=== PATIENT | female | born 2000 | race Caucasian/White ===

== ENCOUNTER 2019-04-12 08:47 | Day surgery (SDC) | payer OTHER ==
[2019-04-09 10:39] LABS: APPEARANCE,URINE SLIGHTLY-CLOUDY; BILIRUBIN,URINE NEGATIVE (NEGATIVE); COLOR,URINE YELLOW; GLUCOSE, URINE NEGATIVE (NEGATIVE); KETONES,URINE NEGATIVE (NEGATIVE); LEUKOCYTE ESTERASE,URINE NEGATIVE (NEGATIVE); NITRITE,URINE NEGATIVE (NEGATIVE); PROTEIN,URINE 100 mg/dL (NEGATIVE); URINE SPECIFIC GRAVITY 1.024; UROBILINOGEN,URINE NEGATIVE mg/dL (<2.0)
[2019-04-09 10:58] LABS: ANION GAP 10 (5-19); BLOOD UREA NITROGEN 11 mg/dL (7-20); CALCIUM 9.5 mg/dL (8.4-10.2); CARBON DIOXIDE 28 mmol/L (22-30); CHLORIDE 102 mmol/L (98-107); GLUCOSE 66 mg/dL (75-110); POTASSIUM 3.8 mmol/L (3.6-5.0)
[2019-04-09 12:10] LABS: ABSOLUTE EOSINOPHILS # (AUTO) 0.2 10^3/uL (0.0-0.6); ABSOLUTE LYMPHOCYTES (AUTO) 2.6 10^3/uL (0.5-4.7); ABSOLUTE MONOCYTES (AUTO) 0.4 10^3/uL (0.1-1.4); ABSOLUTE NEUT (AUTO) 3.7 10^3/uL (1.7-8.2); BASOPHILS % (AUTO) 0.5 % (0-2); EOSINOPHILS % (AUTO) 3.1 % (0-6); HEMATOCRIT 41.8 % (36.0-47.0); LYMPHOCYTES % (AUTO) 37.1 % (13-45); MEAN CORPUSCULAR HEMOGLOBIN 29.2 pg (27.0-33.4); MEAN CORPUSCULAR HGB CONC 33.5 g/dL (32.0-36.0); MEAN CORPUSCULAR VOLUME 87 fl (80-97); MONOCYTES % (AUTO) 6.2 % (3-13); RED BLOOD COUNT 4.81 10^6/uL (3.72-5.28); RED CELL DISTRIBUTION WIDTH 12.8 % (11.5-14.0); SEGMENTED NEUTROPHILS % (AUTO) 53.1 % (42-78); TOTAL CELLS COUNTED % (AUTO) 100 %
[2019-04-09 12:27] LABS: PLATELET COUNT 215 10^3/uL (150-450)
[~2019-04-12 08:47] MED LIST: CEFAZOLIN SODIUM 2 GM in DEXTROSE 5%-WATER 100 ML IV PRN; DEXAMETHASONE SOD PHOSPHATE INJ 4 MG/1 ML VIAL ONE; KETOROLAC TROMETHAMINE 60 MG/2 ML SDV ONE; LACTATED RINGERS 1000 ML IV PRN; LIDOCAINE 2% INJ-PF (20 MG/ML) 2 ML AMPUL ONE; METOCLOPRAMIDE HCL INJ/PF 10 MG/2 ML SDV ONE; ONDANSETRON HCL INJ/PF 4 MG/2 ML SDV ONE; SUCCINYLCHOLINE CHLORIDE INJ 200 MG/10 ML VIAL ONE
[2019-04-12] MEDS ORDERED: BUPIVACAINE HCL 0.25 % INJ/PF (2.5 MG/1 ML) 30 ML VIAL ONE (09:18)
[2019-04-12] MEDS ORDERED: PROPOFOL INJ 200 MG/20 ML VIAL IV ONE (10:30)
[2019-04-12] MEDS ORDERED: MIDAZOLAM 2 MG/2 ML INJ ONE (10:30)
[2019-04-12] MEDS ORDERED: HYDROMORPHONE HCL INJ/PF 2 MG/ML AMPULE ONE (10:30)
[2019-04-12] MEDS ORDERED: DIPHENHYDRAMINE HCL 50 MG/ML VIAL IV PRN (12:17)
[2019-04-12] MEDS ORDERED: ONDANSETRON HCL INJ/PF 4 MG/2 ML SDV IV PRN (12:17)
[2019-04-12] MEDS ORDERED: FENTANYL CITRATE INJ/PF 100 MCG/2 ML AMPUL IV PRN ×3 (12:17)
[2019-04-12] MEDS ORDERED: PROMETHAZINE HCL INJ 25 MG/1 ML VIAL IV PRN ×2 (12:17)
[2019-04-12] MEDS ORDERED: MEPERIDINE HCL/PF INJ 25 MG/1 ML DISP.SYRIN IV PRN (12:17)
[2019-04-12] MEDS ORDERED: OXYCODONE-ACETAMINOPHEN 5-325 MG TABLET PO PRN ×3 (12:17→14:06)
--- NOTE | 2019-04-12 12:49 | Operative Report ---
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 A curvilinear incision made in line with the posterior iliac crest. Sharp dissection was carried incision down to the iliac wing. The gluteal musculatures is lifted periosteally and retracted laterally. The underlying bone cyst is easily visible by translucent bone. This is penetrated. A large amount of clear yellow fluid emanates from this. The lesion is unroofed. Its curetted and tissue sent for pathology. It is irrigated. It is packed with a combination of the talus bone graft substitute and cancellus bone chips. The gluteal musculature is returned to its bed and secured with a Vicryl suture. Remaining closure includes Vicryl in the subcutaneous tissue and a Dermabond skin closure. A sterile compressive dressing was applied and the patient's return to the PACU in satisfactory condition.
--- NOTE | 2019-04-12 12:51 | Discharge Summary ---
Discharge Summary (SDC) - Discharge Final Diagnosis: Left iliac wing unicameral bone cyst Date of Surgery: 04/12/19 Discharge Date: 04/12/19 Condition: Good Treatment or Instructions: Activity as tolerated. No tub bath. Referrals: FROILAN LENTZ MD [Primary Care Provider] - Discharge Diet: As Tolerated, Regular Respiratory Treatments at Home: Deep Breathing/Coughing Discharge Activity: Activity As Tolerated, Balance Activity w/Rest, No tub bath Home Care Assistance: None Needed Report the Following to Your Physician Immediately: Shortness of Breath, Fever over 101 Degrees, Drainage-Foul Smelling
[2019-04-12] MEDS: FENTANYL CITRATE INJ/PF 100 MCG/2 ML AMPUL ONE ×2 (13:35→13:50)
[2019-04-12] MEDS ORDERED: DIPHENHYDRAMINE HCL 50 MG/ML VIAL ONE (14:00)
[2019-04-12] MEDS ORDERED: OXYCODONE-ACETAMINOPHEN 5-325 MG TABLET ONE (14:34)
[2019-04-12 16:48] VITALS: BP 104/65
== END 2019-04-12 16:25 | disposition home or self-care (01) ==
LOC: OROUT 08:47
PROVIDERS: ATTEND Orthopaedic Surgery
DX: M85.68 Other cyst of bone, other site (principal); M25.552 Pain in left hip; R10.9 Unspecified abdominal pain
CPT/HCPCS: 36415; 85025; 81025; 80048; 81001; 88311; 01112; 20240; C1898; J2250; J0690; J1100; J1200; J1885; J3010; J2765; J1170; J0330; J2405; J7060; J2704; J3490; 1112

== ENCOUNTER 2019-09-23 05:35 | Day surgery (SDC) | payer OTHER ==
[2019-09-17 09:31] LABS: HEMATOCRIT 39.7 % (36.0-47.0); HEMOGLOBIN 13.6 g/dL (12.0-15.5); MEAN CORPUSCULAR HEMOGLOBIN 29.7 pg (27.0-33.4); MEAN CORPUSCULAR HGB CONC 34.2 g/dL (32.0-36.0); MEAN CORPUSCULAR VOLUME 87 fl (80-97); PLATELET COUNT 265 10^3/uL (150-450); RED BLOOD COUNT 4.57 10^6/uL (3.72-5.28); RED CELL DISTRIBUTION WIDTH 12.9 % (11.5-14.0); WHITE BLOOD COUNT 5.4 10^3/uL (4.0-10.5)
[2019-09-17 09:39] LABS: COLOR,URINE YELLOW
[2019-09-17 09:40] LABS: APPEARANCE,URINE SLIGHTLY-CLOUDY; BILIRUBIN,URINE NEGATIVE (NEGATIVE); GLUCOSE, URINE NEGATIVE (NEGATIVE); KETONES,URINE NEGATIVE (NEGATIVE); LEUKOCYTE ESTERASE,URINE TRACE (NEGATIVE); NITRITE,URINE NEGATIVE (NEGATIVE); PROTEIN,URINE NEGATIVE (NEGATIVE); URINE SPECIFIC GRAVITY 1.014; UROBILINOGEN,URINE NEGATIVE mg/dL (<2.0)
[2019-09-17 09:58] LABS: ALBUMIN 4.1 g/dL (3.5-5.0); ALKALINE PHOSPHATASE 49 U/L (38-126); ANION GAP 11 (5-19); ASPARTATE AMINO TRANSFERASE 21 U/L (14-36); BILIRUBIN,DIRECT 0.2 mg/dL (0.0-0.4); BILIRUBIN,TOTAL 0.4 mg/dL (0.2-1.3); BLOOD UREA NITROGEN 15 mg/dL (7-20); CALCIUM 9.1 mg/dL (8.4-10.2); CARBON DIOXIDE 23 mmol/L (22-30); CHLORIDE 106 mmol/L (98-107); GLUCOSE 43 mg/dL (75-110); POTASSIUM 3.7 mmol/L (3.6-5.0); TOTAL PROTEIN 7.5 g/dL (6.3-8.2)
[~2019-09-23 05:35] MED LIST changes: +CEFAZOLIN 1 GM/D5W RTU 1 GM/50 ML RTUPB IV PRN; -CEFAZOLIN SODIUM 2 GM in DEXTROSE 5%-WATER 100 ML IV PRN; -DEXAMETHASONE SOD PHOSPHATE INJ 4 MG/1 ML VIAL ONE; -KETOROLAC TROMETHAMINE 60 MG/2 ML SDV ONE; +LIDOCAINE 0.5% INJ-PF (5 MG/ML) 50 ML SDV SUBCUT PRN; -LIDOCAINE 2% INJ-PF (20 MG/ML) 2 ML AMPUL ONE; -METOCLOPRAMIDE HCL INJ/PF 10 MG/2 ML SDV ONE; -ONDANSETRON HCL INJ/PF 4 MG/2 ML SDV ONE; -SUCCINYLCHOLINE CHLORIDE INJ 200 MG/10 ML VIAL ONE
[2019-09-23] MEDS ORDERED: CEFAZOLIN 1 GM/D5W RTU 1 GM/50 ML RTUPB IV ONE (06:22)
[2019-09-23] MEDS ORDERED: ONDANSETRON HCL INJ/PF 4 MG/2 ML SDV ONE (06:55)
[2019-09-23] MEDS ORDERED: FENTANYL CITRATE INJ/PF 100 MCG/2 ML AMPUL ONE (06:55)
[2019-09-23] MEDS ORDERED: DEXAMETHASONE SOD PHOSPHATE INJ 4 MG/1 ML VIAL ONE (06:55)
[2019-09-23] MEDS ORDERED: KETOROLAC TROMETHAMINE 60 MG/2 ML SDV ONE (06:55)
[2019-09-23] MEDS ORDERED: MIDAZOLAM 2 MG/2 ML INJ ONE (06:55)
[2019-09-23] MEDS ORDERED: PROPOFOL INJ 200 MG/20 ML VIAL IV ONE (06:56)
[2019-09-23] MEDS ORDERED: BUPIVACAINE HCL 0.25 % INJ/PF (2.5 MG/1 ML) 30 ML VIAL ONE (07:13)
[2019-09-23] MEDS ORDERED: DIPHENHYDRAMINE HCL 50 MG/ML VIAL IV PRN (07:55)
[2019-09-23] MEDS ORDERED: ONDANSETRON HCL INJ/PF 4 MG/2 ML SDV IV PRN (07:55)
[2019-09-23] MEDS ORDERED: FENTANYL CITRATE INJ/PF 100 MCG/2 ML AMPUL IV PRN ×3 (07:55)
[2019-09-23] MEDS ORDERED: MEPERIDINE HCL/PF INJ 25 MG/1 ML DISP.SYRIN IV PRN (07:55)
[2019-09-23] MEDS ORDERED: PROMETHAZINE HCL INJ 25 MG/1 ML VIAL IV PRN ×3 (07:55→09:04)
[2019-09-23] MEDS ORDERED: TRAMADOL HCL 50 MG TABLET PO PRN (09:03)
[2019-09-23] MEDS ORDERED: ACETAMINOPHEN 1,000 MG/100 ML RTUPB IV ONE (09:06)
--- NOTE | 2019-09-23 09:12 | Brief Operative Note ---
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 She was then inducted under general anesthesia. Patient was repositioned in a dorsolithotomy position. Patient was prepped and draped in sterile fashion. The bladder was drained of 25 cc of clear yellow urine. A pelvic exam under anesthesia was then performed. A weighted speculum was then inserted into the vagina. The cervix was grasped on the anterior lip with a single-tooth tenaculum and an Allis forceps. The cervix was then dilated with Shah dilators. Uterus was sounded to 7 cm. A tenaculum probe was then inserted into the uterine cavity and attached. After regloving attention was turned toward the abdominal wall. Varies needle was introduced umbilically and carried through the various layers until the abdominal cavity was entered. Drop of saline was placed on the varies needle. The drop of saline into the peritoneum without any problems. The varies needle was connected to the CO2. Putting pressures were 4 cm of water. Patient was then inflated with CO2 reaching a pressure of 15 cm of water. It was 2.3 L of CO2 used. Varies needle was removed and a small incision was made infraumbilically. Through this incision a trocar and sleeve were inserted and the trocar was removed. Laparoscope was then inserted into the peritoneal cavity. A second incision was then made suprapubically. Through this incision a trocar and sleeve were inserted. A probe was inserted through the super pubic sleeve. Contents of the pelvis and abdomen were then visually recorded. There was a small amount of non-clotted blood in the cul-de-sac which was suctioned out and sent for evaluation. This terminated the laparoscopic part of the procedure. The suprapubic sleeve was removed there was no evidence of active bleeding. The CO2 was allowed to escape. Subumbilical sleeve was then removed. Patient had 4 cc of quarter percent Marcaine injected into the subumbilical and suprapubic incisions. The fascia was closed with interrupted using 0 Vicryl. Skin edges were brought together with a subcuticular 4-0 Prolene in the subumbilical incision and interrupted 4-0 Prolene in the suprapubic incision. Attention was then turned down to the pelvis and a speculum was inserted. This is grasped on its anterior lip with a single-tooth tenaculum. Endometrial cavity was then curetted with a small sharp curette. This terminated the procedure. Bandages were applied to the subumbilical and suprapubic incisions. Anesthesia was discontinued and the patient was taken out of dorsolithotomy position. Patient was transferred to the recovery room in satisfactory condition with an estimated blood loss of approximately [address] Burgess dictating on 09/27/2019 thank you.
[2019-09-23] MEDS ORDERED: ACETAMINOPHEN 1,000 MG/100 ML RTUPB IV PRN (09:18)
[2019-09-23] MEDS ORDERED: TRAMADOL HCL 50 MG TABLET ONE (09:45)
[2019-09-23] MEDS ORDERED: VECURONIUM BROMIDE INJ 10 MG VIAL IV ONE (10:32)
[2019-09-23] MEDS ORDERED: SUCCINYLCHOLINE CHLORIDE INJ 200 MG/10 ML VIAL ONE (10:32)
[2019-09-23 11:16] VITALS: BP 120/83
== END 2019-09-23 10:50 | disposition home or self-care (01) ==
LOC: OROUT 05:35
PROVIDERS: ATTEND Obstetrics & Gynecology
DX: K66.0 Peritoneal adhesions (postprocedural) (postinfection) (principal); N70.91 Salpingitis, unspecified; K82.8 Other specified diseases of gallbladder; R10.2 Pelvic and perineal pain; Z88.5 Allergy status to narcotic agent; Z88.8 Allergy status to other drugs, medicaments and biological substances
CPT/HCPCS: 36415; 82962; 85027; 81025; 80053; 81001; 88162; 88305 ×2; 00790; 49320; J2250; J0690; J1100; J1885; J3010; J3490; J0330; J2405; J2704; J0131; 790